=== PATIENT | male | born 1995 | race Asian ===

== ENCOUNTER 2017-01-03 19:20 | Emergency (ER) | payer OTHER ==
[2017-01-03 19:38] VITALS: TEMP 97.7; BMI 19.1
[2017-01-03] MEDS ORDERED: SODIUM CHLORIDE 1,000 ML IV STA (19:41)
[2017-01-03 19:57] LABS: BASOPHIL 0.3 % (0-2.0); EOSINOPHIL 0.9 % (0-4.5); MCH 28.7 pg (25.7-33.7); MCHC 33.1 g/dl (32.0-35.9); MEAN CELL VOLUME 86.8 fl (80-96); MEAN PLT VOLUME 9.1 fl (7.5-11.1); NEUTROPHILS 80.3 % (42.8-82.8); PLATELET COUNT 186 K/MM3 (134-434); RDW 13.3 % (11.9-15.9); WHITE BLOOD COUNT 9.3 K/mm3 (4.0-10.0)
--- NOTE | 2017-01-03 20:12 | PDOC ---
History of Present Illness - General Chief Complaint: Shortness of Breath Stated Complaint: DIFFICULTY BREATHING Time Seen by Provider: 01/03/17 19:34 History Source: Patient Exam Limitations: No Limitations - History of Present Illness Initial Comments: 01/03/17 20:07 21yo Male patient w/no significant past medical history presents to ED c/o chest pain w/ difficulty breathing. 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 After completing exercises, he began shadow boxing, then developed chest pains and trouble breathing. Patient states symptoms have never happened before, denies drug use, smoking, or any other complaints at this time. Presenting Symptoms: Chest Pain, Short of Breath Timing/Duration: reports: constant Severity/Quality: reports: mild, tightness Location: reports: substernal Chest Pain Radiation: reports: back Activities at Onset: reports: exertion, rest Prior Chest Pain/Cardiac Workup: reports: No prior chest pain, No prior cardiac workup. denies: Non-cardiac, Angina, Cardiac Cath, Cardiolye Scan, Echocardiography, Heart Attack, Pulmonary Embolism, Stress Test, Thallium Scan, Other Modifying Factors: worse with: antacids, breathing, coughing, defecating, eating , exercise, lying down, morphine, movement, nitroglycerin, oxygen, palpation, rest, other Nitro Today/Relief: No: no nitro taken today, 0.4 mg x 1, 0.4 mg x 2, 0.4 mg x 3 , 0.4 mg x 4, provided by EMS, provided by ED, provided at home, no relief, mild relief, complete relief Aspirin Received prior to arrival (Core Measure): No: no aspirin today, unknown , 81 mg x 1, 81 mg x 2, 81 mg x 3, 81 mg x 4, 325 mg x 1, provided at home, provided by EMS, provided by ED ASA Contraindications (Core Measure): No: Allergy, Other, Active Blding w/i 24 hrs., Plavix, Receiving Warfarin Past History - Travel Traveled outside of the country in the last 30 days: No Close contact w/someone who was outside of country & ill: No - Past Medical History Allergies/Adverse Reactions: Allergies Allergy/AdvReac Type Severity Reaction Status Date / Time No Known Allergies Allergy Verified 01/03/17 19:37 Home Medications: Ambulatory Orders NK [No Known Home Medication] 01/03/17 - Psycho/Social/Smoking Cessation Hx Suicidal Ideation: No Smoking History: Never smoked Review of Systems - Review of Systems Able to Perform ROS?: Yes Is the patient limited Icelandic proficient: No Constitutional: No: Chills, Fever Respiratory: Yes: Shortness of Breath. No: Cough, Stridor, Wheezing, Hemoptysis Cardiac (ROS): Yes: Chest Pain, Chest Tightness. No: Edema, Irregular Heart Rate, Lightheadedness, Palpitations, Syncope ABD/GI: No: Constipated, Diarrhea, Nausea, Poor Appetite, Poor Fluid Intake, Vomiting : No: Dysuria, Flank Pain, Hematuria, Testicular Pain Musculoskeletal: Yes: Back Pain. No: Muscle Pain, Muscle Weakness, Neck Pain Integumentary: No: Bruising, Erythema, Pruritus, Rash, Sweating Neurological: No: Headache, Numbness, Seizure, Tingling, Tremors, Weakness, Ataxia, Dizziness All Other Systems: Reviewed and Negative *Physical Exam - Vital Signs Last Vital Signs Temp Pulse Resp BP Pulse Ox 97.7 F 75 16 102/65 98 01/03/17 19:37 01/03/17 19:57 01/03/17 19:37 01/03/17 19:37 01/03/17 19:57 - Physical Exam General Appearance: Yes: Nourished, Appropriately Dressed. No: Apparent Distress, Mild Distress, Moderate Distress, Severe Distress Neck: positive: Trachea midline, Normal Thyroid, Supple. negative: Stridor, Lymphadenopathy (R), Lymphadenopathy (L) Respiratory/Chest: positive: Chest Tender (On palpation), Lungs Clear, Normal Breath Sounds. negative: Respiratory Distress, Accessory Muscle Use, Labored Respiration, Rapid RR Cardiovascular: positive: Regular Rhythm, Regular Rate, S1, S2. negative: Edema , JVD, Murmur, Bradycardia, Tachycardia Gastrointestinal/Abdominal: positive: Normal Bowel Sounds, Flat, Soft. negative : Distended, Guarding, Rebound, Tenderness Musculoskeletal: positive: Normal Inspection. negative: CVA Tenderness Extremity: positive: Normal Capillary Refill, Normal Inspection, Normal Range of Motion. negative: Pedal Edema, Swelling, Calf Tenderness, Erythema, Inflammation Integumentary: positive: Normal Color, Dry, Warm. negative: Erythema, Moist, Hives, Swelling, Ecchymosis, Bruising Neurologic: positive: automatic folder seamer II-XII NML intact, Fully Oriented, Alert, Normal Mood/ Affect, Normal Response, Motor Strength 5/5 Heart Score/ECG Review - History History: Slightly suspicious - Electrocardiogram EKG: Normal - Age Age: </= 45 - Risk Factors Risk Factors Heart Score: No Hx Hypercholesterolemia, No Hx Hypertension, No Hx Diabetes, No Smoking History, No Positive family hx of cardiac disease, No Hx Obesity Based on the list above the patient has:: No risk factors known - Troponin Troponin: </= normal limit - Score Heart Score - Total: 0 - ECG Impressions Normal ECG: Yes Non-specific ST Elevation: No Ischemic Changes: No Bradycardia: No Torsades lnia Pointes: No WPW: No ED Treatment Course - LABORATORY CBC & Chemistry Diagram: 01/03/17 19:30 01/03/17 19:30 - ADDITIONAL ORDERS Additional order review: Laboratory Results 01/03/17 19:30 Sodium 141 Potassium 4.7 Chloride 102 Carbon Dioxide 25 Anion Gap 14 BUN 15 Creatinine 1.1 Creat Clearance w eGFR > 60 Random Glucose 88 Calcium 8.8 Total Bilirubin 1.3 H AST 28 ALT 22 Alkaline Phosphatase 82 Creatine Kinase 332 H Troponin I < 0.02 Total Protein 6.7 Albumin 3.9 01/03/17 19:30 RBC 5.17 MCV 86.8 MCHC 33.1 RDW 13.3 MPV 9.1 Neutrophils % 80.3 Lymphocytes % 13.2 Monocytes % 5.3 Eosinophils % 0.9 Basophils % 0.3 - RADIOLOGY Radiology Studies Ordered: Category Date Time Status CHEST PA & LAT [RAD] Stat Radiology 01/03/17 19:41 Completed - Medications Given in the ED: ED Medications Discontinued Medications Generic Name Dose Route Start Last Admin Trade Name Freq PRN Reason Stop Dose Admin Sodium Chloride 1,000 mls @ 1,000 mls/hr 01/03/17 19:41 01/03/17 19:55 Normal Saline - IV 01/03/17 20:40 1,000 mls/hr ASDIR STA Administration *DC/Admit/Observation/Transfer Diagnosis at time of Disposition: Musculoskeletal chest pain - Discharge Dispostion Disposition: HOME Condition at time of disposition: Stable Admit: No - Patient Instructions Printed Discharge Instructions: DI for Musculoskeletal Pain Additional Instructions: ALL YOU TESTING INCLUDING CHEST X-RAY AND EKG ARE NORMAL. YOU ARE MOST LIKELY EXPERIENCING MUSCULOSKELETAL CHEST PAIN. YOU CAN TREAT THIS WITH WATER/GATORADE AND MOTRIN FOR PAIN NEEDED. REST. NO PHYSICAL ACTIVITY X 1 WEEK WITH REST. RETURN IF SYMPTOMS WORSEN OR ANY CONCERNS FOR FURTHER EVALUATION. FOLLOW UP WITH YOUR DOCTOR. Print Language: CITIZEN OF [place]
[2017-01-03 20:41] LABS: ALBUMIN 3.9 g/dl (3.4-5.0); ANION GAP 14 (8-16); BILIRUBIN,TOTAL 1.3 mg/dL (0.2-1.0); CALCIUM 8.8 mg/dL (8.5-10.1); CO2 25 mmol/L (21-32); COCKROFT - GAULT 83.14; CREATININE 1.1 mg/dL (0.7-1.3); GLUCOSE,RANDOM 88 mg/dL (74-106); SGOT/AST 28 U/L (15-37); SGPT/ALT 22 U/L (12-78); TOT PROT 6.7 g/dl (6.4-8.2)
[2017-01-03 20:44] LABS: ALK PHOS 82 U/L (45-117); TROPONIN I < 0.02 ng/ml (0.00-0.05)
--- NOTE | 2017-01-03 20:56 | PDOC ---
*Physical Exam - Vital Signs Last Vital Signs Temp Pulse Resp BP Pulse Ox 97.7 F 75 16 102/65 98 01/03/17 19:37 01/03/17 19:57 01/03/17 19:37 01/03/17 19:37 01/03/17 19:57 ED Treatment Course - LABORATORY CBC & Chemistry Diagram: 01/03/17 19:30 01/03/17 19:30 - ADDITIONAL ORDERS Additional order review: Laboratory Results 01/03/17 19:30 Sodium 141 Potassium 4.7 Chloride 102 Carbon Dioxide 25 Anion Gap 14 BUN 15 Creatinine 1.1 Creat Clearance w eGFR > 60 Random Glucose 88 Calcium 8.8 Total Bilirubin 1.3 H AST 28 ALT 22 Alkaline Phosphatase 82 Creatine Kinase 332 H Troponin I < 0.02 Total Protein 6.7 Albumin 3.9 01/03/17 19:30 RBC 5.17 MCV 86.8 MCHC 33.1 RDW 13.3 MPV 9.1 Neutrophils % 80.3 Lymphocytes % 13.2 Monocytes % 5.3 Eosinophils % 0.9 Basophils % 0.3 - Medications Given in the ED: ED Medications Discontinued Medications Generic Name Dose Route Start Last Admin Trade Name Freq PRN Reason Stop Dose Admin Sodium Chloride 1,000 mls @ 1,000 mls/hr 01/03/17 19:41 01/03/17 19:55 Normal Saline - IV 01/03/17 20:40 1,000 mls/hr ASDIR STA Administration Medical Decision Making - Medical Decision Making 01/03/17 20:56 agree with care from CASTILLO Parada *DC/Admit/Observation/Transfer Diagnosis at time of Disposition: Musculoskeletal chest pain - Discharge Dispostion Disposition: HOME Condition at time of disposition: Stable - Patient Instructions Printed Discharge Instructions: DI for Musculoskeletal Pain Additional Instructions: ALL YOU TESTING INCLUDING CHEST X-RAY AND EKG ARE NORMAL. YOU ARE MOST LIKELY EXPERIENCING MUSCULOSKELETAL CHEST PAIN. YOU CAN TREAT THIS WITH WATER/GATORADE AND MOTRIN FOR PAIN NEEDED. REST. NO PHYSICAL ACTIVITY X 1 WEEK WITH REST. RETURN IF SYMPTOMS WORSEN OR ANY CONCERNS FOR FURTHER EVALUATION. FOLLOW UP WITH YOUR DOCTOR. Print Language: POLISH
[2017-01-03 22:17] VITALS: BP 110/74; PULSE 68
--- NOTE | 2017-01-04 11:23 | EKG ---
Test Reason : Blood Pressure : / mmHG Vent. Rate : 063 BPM Atrial Rate : 063 BPM P-R Int : 154 ms QRS Dur : 094 ms QT Int : 420 ms P-R-T Axes : 064 057 030 degrees QTc Int : 429 ms NORMAL SINUS RHYTHM POSSIBLE LEFT ATRIAL ENLARGEMENT BORDERLINE ECG NO PREVIOUS ECGS AVAILABLE Confirmed by KIRA WALTON, HOU[place]ON ([id number]) on 01/04/2017 11:22:58 AM Referred By: Confirmed By:HOUSTON MALONE MD
== END 2017-01-03 22:17 | disposition home or self-care (01) ==
LOC: JER 19:20
PROC: 3E0337Z Introduction of Electrolytic and Water Balance Substance into Peripheral Vein, Percutaneous Approach (ICD-10-PCS; principal; 2017-01-03)
DX: R07.89 Other chest pain (principal)
CPT/HCPCS: 36415; 71020-TC; 80053; 82550; 82553; 84484; 85025; 93005; 93010; 99283-25